=== PATIENT | female | born 1995 | race African-American/Black ===

== ENCOUNTER 2017-05-17 18:45 | Emergency (ER) | payer SELFPAY ==
[2017-05-17 18:50] VITALS: RESP 16; TEMP 98.2
--- NOTE | 2017-05-17 19:11 | EDPHY ---
H & P Time Seen by Provider: 05/17/17 19:02 HPI/ROS: CHIEF COMPLAINT: Vaginal discharge HISTORY OF PRESENT ILLNESS: The patient is a 22-year-old female presenting with watery, fowl smelling discharge. She has associated mild lower abdominal discomfort. The patient has a history of bacterial vaginosis and states her symptoms are the same. She is sexually active with 1 partner. Patient is on control. Her LMP was the beginning of March. She denies nausea, vomiting, or diarrhea. REVIEW OF SYSTEMS: A comprehensive 10 point review of systems is otherwise negative aside from elements mentioned in the history of present illness. Past Medical/Surgical History: Denies. Social History: Relocated from [place] recently. Smoking Status: Never smoked Physical Exam: General Appearance: Alert, pleasant Eyes: Pupils equal and round, no conjunctival pallor or injection ENT, Mouth: Mucous membranes moist Neck: Normal inspection Respiratory: Lungs are clear to auscultation Cardiovascular: Regular rate and rhythm Gastrointestinal: Abdomen is soft and non-tender Genitourinary: Watery discharge, No cervical motion tenderness, No adnexal tenderness Neurological: A&O, nonfocal, normal gait Skin: Warm and dry, no rash Extremities: Nontender, no pedal edema Psychiatric: Mood and affect normal Constitutional: Initial Vital Signs Temperature (C) 36.8 C 05/17/17 18:48 Heart Rate 79 05/17/17 18:48 Respiratory Rate 16 05/17/17 18:48 Blood Pressure 116/76 05/17/17 18:48 O2 Sat (%) 99 05/17/17 18:48 O2 Delivery Mode Room Air Allergies/Adverse Reactions: No Known Allergies Allergy (Unverified 05/17/17 18:47) Home Medications: Medication Instructions Recorded metroNIDAZOLE [Flagyl 500 mg (*)] 500 mg PO BID #20 tab 05/17/17 Medical Decision Making ED Course/Re-evaluation: Patient presents with watery, fowl smelling vaginal discharge with associated lower abdominal discomfort. She states these symptoms are the same as previous bacterial vaginosis. Plan for pelvic exam. I will check bacterial vaginosis, GC , and Chlamydia. Urine preg sent. After pelvic exam, lab called to inform us that the incorrect swab was sent for BV (although the ED RN called to confirm the correct swab). Given that she has typical BV sx, I will treat her for BV. Differential Diagnosis: Differential diagnosis includes though it is not limited to ectopic , ovarian cyst, ovarian torsion, PID, UTI, appendicitis. - Data Points Laboratory Results: 05/17/17 05/17/17 19:40 19:15 Urine Test NEGATIVE C.trachomatis RNA (TMA) Pending N.gonorrhoeae RNA (TMA) Pending Departure - Departure Clinical Impression: Bacterial vaginosis Condition: Good Instructions: Bacterial Vaginosis (ED) Additional Instructions: 1. Take full course of antibiotics as directed. 2. You have been referred to the consumer lender [employer]. Please call to arrange an appointment as necessary. Referrals: Daphne Rolon MD [Medical Doctor] - As per Instructions ([employer]) Prescriptions: metroNIDAZOLE [Flagyl 500 mg (*)] 500 mg PO BID #20 tab Report Scribed for: Lia Fritz Report Scribed by: Nora Amaro Date of Report: 05/17/17 Time of Report: 19:06 Physician Review and Approval Statement: 05/17/17 19:06 Portions of this note were transcribed by a medical orderly. I personally performed the history, physical exam, and medical decision-making; and confirmed the accuracy of the information in the transcribed note.
[2017-05-17 20:09] VITALS: BP 117/84; PULSE 69; O2SAT 96
[2017-05-18 13:57] LABS: CHLAMYDIA AMPLIFICATION GENPRB NEGATIVE (NEGATIVE)
== END 2017-05-17 20:09 | disposition home or self-care (01) ==
DX: N76.0 Acute vaginitis (principal)